=== PATIENT | male | born 1955 | race Caucasian/White ===

== ENCOUNTER → 2017-07-03 13:05 | Outpatient (CLI) | payer MEDICARE, SELFPAY ==
--- NOTE | 2017-07-03 13:08 | CT_ITS ---
STUDY: CT CHEST WITHOUT CONTRAST REASON FOR EXAM: Male, 62 years old. Follow up lung nodule RADIATION DOSAGE (If Supplied By Facility): CTDIvol = ( 12.4 ) mGy, DLP = ( 505.23 ) mGycm TECHNIQUE: Transaxial imaging of the chest was performed without intravenous contrast material. Sagittal and coronal reconstructions were performed. Individualized dose optimization techniques were used for this CT. COMPARISON: April 04, 2017 FINDINGS: There is stable biapical scarring. Bullous changes are again seen in both lungs, more pronounced in the upper lobes. There are stable coarse opacities along the periphery of the right lung. There is a stable 6 mm opacity in the subpleural location of the anterior segment of the right lower lobe on image 83 series 4. There is stable nodularity in the periphery of the lingula. There are minimal secretions in the airways. There is no demonstrated pleural abnormality. The heart is normal in size. There are calcifications of the coronary arteries. There are small lymph nodes scattered in the mediastinum. The hilar regions are unremarkable allowing for lack of contrast in the vessels. The pulmonary arteries are unremarkable. There are minimal vascular calcifications in the thoracic aorta. There are minimal degenerative changes in the visualized spine. There are old rib fractures on the right. Cholecystectomy clips are present. There are benign coarse calcifications in the liver. There is a small hiatal hernia. CT/Chest without Contrast IMPRESSION: The 6 mm subpleural nodule is stable in the anterior segment of the right lower lobe. This is likely secondary to scarring. There are stable emphysematous changes bilaterally. There is stable coarse scarring in the periphery of the right lung and lingula. There is no pleural effusion or significant lymphadenopathy. A follow-up CT of the chest can be obtained in one year. Electronically Signed: Sylwia Prakash MD at 9:31 EDT Tel Direct: [phone], Service support ,
== END ==
PROVIDERS: Family Provider Family Medicine; PCP Family Medicine; Visit Provider Internal Medicine Pulmonary Disease
DX: R91.1 Solitary pulmonary nodule (principal)
CPT/HCPCS: 71250

== ENCOUNTER → 2018-04-04 12:41 | Outpatient (CLI) | payer MEDICARE, SELFPAY ==
--- NOTE | 2018-04-04 12:45 | CT_ITS ---
STUDY: CT CHEST WITHOUT CONTRAST REASON FOR EXAM: Male, 62 years old. Lung nodule follow-up RADIATION DOSAGE (If Supplied By Facility): CTDIvol = ( 14.69 ) mGy, DLP = ( 616.66 ) mGycm TECHNIQUE: Transaxial imaging was performed without the administration of intravenous contrast material. Multiplanar coronal and sagittal images were reformatted. Individualized dose optimization techniques were used for this CT. COMPARISON: 07/03/2017, 04/04/2017 FINDINGS: Bullous emphysematous changes of the bilateral upper to mid lungs redemonstrated with linear fibrotic changes of the right middle and bilateral lower lobes. Similar appearance since the prior study. 6 mm subpleural noncalcified nodule in the anterior right lower lobe adjacent to the minor fissure and axial image 90 is stable. Reticulonodular fibrotic changes of the lingula are overall stable. No new pulmonary nodule. Secretions layer dependently in the lower trachea. There is no demonstrated pleural abnormality. Normal heart and pericardium. There is mild cardiac enlargement. Similar subcentimeter lymph nodes of the mediastinum without dominant larry mass. No obvious hilar adenopathy (limited without IV contrast). Normal unenhanced pulmonary arteries. Vascular calcifications of the thoracic aorta redemonstrated. There are multi-level degenerative changes of the thoracic spine. Old right rib fractures redemonstrated. Coarse calcifications of the liver are likely related to prior inflammation, doubtful clinical significance. Gallbladder surgically absent. Small hiatal hernia is noted. CT/Chest without Contrast IMPRESSION: 1. Since 07/03/2017 (and 04/04/2017), stable exam. Stable 6 mm subpleural nodule in the anterior right lower lobe. Probable postinflammatory/fibrotic in nature recommend follow-up chest CT in one year (to document stability for a total of 2 years) according to Fleischner Society recommendations. 2. Bullous emphysema with scattered fibrotic bands. 3. Additional chronic changes, as above, stable. Electronically Signed: Adair Barnes MD at 8:14 EST , Service support ,
== END ==
PROVIDERS: Family Provider Family Medicine; PCP Family Medicine; Referring Provider Internal Medicine Pulmonary Disease; Visit Provider Internal Medicine Pulmonary Disease
DX: R91.1 Solitary pulmonary nodule (principal)
CPT/HCPCS: 71250

== ENCOUNTER 2018-09-25 08:17 | Emergency (ER) | payer MEDICARE, SELFPAY ==
[2018-09-25 08:18] VITALS: BP 125/71; PULSE 58; RESP 16; TEMP 36.1; O2SAT 95; BMI 25.9
--- NOTE | 2018-09-25 08:35 | CT_ITS ---
STUDY: CT BRAIN WITHOUT CONTRAST REASON FOR EXAM: Male, 63 years old. Located RADIATION DOSAGE (If Supplied By Facility): CTDIvol = ( 44.99 ) mGy, DLP = ( 812.98 ) mGycm TECHNIQUE: Transaxial CT imaging of the brain was performed without administration of intravenous contrast material. Individualized dose optimization techniques were used for this CT. COMPARISON: No relevant priors. FINDINGS: Normal soft tissue structures. Normal calvarium. Normal size ventricles and extra-axial spaces for the patient's age. Normal white matter tracts of the cerebral hemispheres. Normal basal ganglia and thalami. Normal brainstem. Normal cerebellum. There is no intracranial hemorrhage. There are no findings of an acute ischemic infarction. Normal visualized paranasal sinuses. CT/Brain/Head without Contrast IMPRESSION: Normal unenhanced CT scan of the brain. Electronically Signed: Belkis Odonnell, at 9:21 EDT Tel , Service support ,
--- NOTE | 2018-09-25 08:35 | EKG12_ITS ---
Test Reason : NEURO Blood Pressure : / mmHG Vent. Rate : 053 BPM Atrial Rate : 053 BPM P-R Int : 142 ms QRS Dur : 100 ms QT Int : 442 ms P-R-T Axes : 072 059 059 degrees QTc Int : 414 ms Sinus bradycardia Otherwise normal ECG Confirmed by DILCIA SANCHEZ, BANDAR ([id number]), development editor GLORIA MOHAN ([id number]) on 09/27/2018 10:37:45 AM Referred By: LYDIA Confirmed By:LIZETTE HA MD
--- NOTE | 2018-09-25 08:36 | ED.VISSUMM ---
- ER Visit Summary Date of Service: 09/25/18 Chief Complaint: Dizziness, left arm tingling History of Present Illness: The patient is a 63 M who has been having dizziness as well as tingling of his left arm. He has had this for 2 days. He describes it both as lightheaded and room spinning sensations. He has had a slight intermittent headache that is controlled with Tylenol. He denies any chest pain or shortness of breath. The tingling is on the entire left arm. He denies any weakness. No facial droop or slurred speech. He does not have any history of this in the past. He does have COPD diabetes and hypertension but no history of stroke in the past. Physical Examination: Vital signs reviewed. HEENT exam unremarkable. His symptoms are exacerbated with eye movements up and down. Heart is regular rate and rhythm without murmurs. Lungs are clear to auscultation. Abdomen is soft and nontender. Extremities reveal no edema. Skin exam normal. Neurologic exam reveals a decreased sensation of the left arm. His NIH is 1 for this. Otherwise it is unremarkable. Test Results: EKG is normal sinus rhythm with a rate of 53. Laboratory studies show a hemoglobin of 11.7. Glucose 145. Troponin normal. CAT scan of the head is normal Emergency Department Course and Treatment: The patient was given meclizine. Upon reevaluation patient states he is feeling much better. Note this is likely vertigo causing his symptoms. He did have some slight paresthesias of the left arm but there is no weakness. Do not feel this represents stroke. Patient will be given meclizine to take at home. He will call his doctor for follow-up. Treatment Plan: [] Disposition: Discharge Impression: Vertigo This note was generated with [employer]thon[employer] software. It may contain incorrect words, spelling, and punctuation that were not noted in review of the chart prior to signing ED Disposition - Plan for ED Patient: Referrals: Daryl Dodson MD [Primary Care Provider] -
[2018-09-25 08:58] LABS: Absolute Lymphocyte Count 1.52 X10^3/ul (0.83-4.51); Absolute Neutrophil Count 4.7 X10^3/uL (2.0-7.7); Basophil# 0.02 X10^3/uL; Basophil% 0.3 % (0-1); Eosinophil# 0.21 X10^3/uL; Hemoglobin 11.7 g/dl (13.0-16.5); Lymphocyte # 1.52 X10^3/ul (4.0); Lymphocyte % 21.8 % (19-41); Mean Corp Hgb Conc 31.6 g/gl (32-36); Mean Corpuscular Hgb 26.1 pg (27.0-32.0); Mean Corpuscular Volume 82.6 fL (80-94); Mean Platelet Vol. 9.7 fl (6.2-12.0); Monocyte# 0.57 X10^3/uL; Monocyte% 8.2 % (0-10); Neutrophil # 4.65 X10^3/uL (2.7-7.7); Neutrophil % 66.6 % (47-70); Platelet Count 195 K/mm3 (150-450); RBC Distribution Width CV 14.6 % (11.6-14.6); RBC Distribution Width SD 42.9 fl (35.1-43.9); Red Blood Count 4.48 M/mm3 (4.6-6.2)
[2018-09-25 08:59] LABS: POSITIVE COUNT NO; POSITIVE DIFFERENTIAL NO; POSITIVE MORPHOLOGY NO
[2018-09-25 09:11] LABS: Anion Gap 6 (5-15); BUN 11 mg/dL (7-18); BUN/Creat Ratio 14.5 RATIO (10-20); Calcium,Total 8.9 mg/dL (8.5-10.1); Chloride 105 mmol/L (98-107); Creatinine, Serum 0.76 mg/dL (0.70-1.30); EST Glomerular Filtration Rate 110 mL/min (>60); Est Glom Filt Rate - Afr Amer 134 mL/min (>60); Estimated Creatinine Clearance 94.22 ml/min; Glucose 145 mg/dL (74-106); Potassium 3.6 mmol/L (3.5-5.1); Sodium Level 138 mmol/L (136-145)
[2018-09-25] MEDS: Meclizine HCl 25 MG Tablet PO (09:58)
--- NOTE | 2018-09-25 10:31 | ED.DEP ---
ED Disposition - Plan for ED Patient: Disposition: Home or Assisted Living Instructions: VERTIGO, Unspecified Prescriptions: Meclizine HCl [Antivert] 25 mg PO 4X/DAY PRN PRN #20 tab PRN Reason: Dizziness Prescription Printed Referrals: Daryl Dodson MD [Primary Care Provider] -
[2018-09-25 10:50] VITALS: BP 125/70; PULSE 71; RESP 18; O2SAT 97
== END 2018-09-25 10:51 | disposition home or self-care (01) ==
PROVIDERS: Emergency Provider Emergency Medicine; Family Provider Family Medicine; PCP Family Medicine
DX: R42 Dizziness and giddiness (principal); J44.9 Chronic obstructive pulmonary disease, unspecified; E11.9 Type 2 diabetes mellitus without complications; I10 Essential (primary) hypertension; R20.2 Paresthesia of skin
CPT/HCPCS: 70450; 80048; 84484; 85025; 93005; 99285; A4216

== ENCOUNTER 2019-03-13 22:36 | Emergency (ER) | payer MEDICARE, SELFPAY ==
[2019-03-13 22:38] VITALS: BP 121/70; PULSE 86; RESP 18; TEMP 38.1; O2SAT 91; BMI 24.7
--- NOTE | 2019-03-13 22:50 | RAD_ITS ---
STUDY: X-RAY CHEST REASON FOR EXAM: Male, 63 years old. cough, shortness of breath, Hx COPD TECHNIQUE: PA and lateral views of the chest. COMPARISON: July 03, 2016 FINDINGS: Reidentification of moderate cystic emphysematous changes and interstitial thickening with basilar predominance of both lungs. Several old right-sided rib fractures noted. No focal consolidation or pleural effusion. There is no demonstrated pleural abnormality. Normal size heart. Stable visualized osseous and mediastinal structures. RAD/Chest PA and Lateral IMPRESSION: COPD/emphysema Electronically Signed: Cabrera Hall MD at 23:17 EST , Service support ,
--- NOTE | 2019-03-14 00:25 | ED.DCSUM_ITS ---
History of Present Illness Chief Complaint: Shortness of Breath Narrative: Patient is a 63-year-old male who presents with about 2 months of a cough. He does have a history of COPD. He complains of ongoing productive cough with white sputum congestion and rhinorrhea. He has been on 2 rounds of steroids and antibiotics. He most recently completed antibiotics and steroids about 1 week ago. He has not short of breath. He denies any pain. He felt warm at home and had a temperature of 100.5 on arrival here. He has not seen his certified physical therapist assistant recently. He denies any pain. He notes that his chest is sore from coughing. Past Medical History - Allergies and Home Meds Allergies/Adverse Reactions: Allergies morphine Adverse Reaction (Verified 03/13/19 22:40) Nausea/Vom/Diarrhea Primary Care Physician: Daryl Dodson MD [Primary Care Provider] - Past Medical History: - - COPD, diabetes, hypertension Surgical History: - - Thoracotomy for pneumothorax repair Smoking Status: Former smoker - Family History Paternal Family History: Reports: No pertinent history Review of Systems All systems negative except as indicated General: Reports: Fever Eyes: Denies: Visual changes - bilaterally ENT: Reports: - - Congestion. Denies: Bilateral ear pain Cardiovascular: Reports: Chest pain Respiratory: Reports: Cough, Sputum. Denies: Dyspnea Gastrointestinal: Denies: Abdominal pain Musculoskeletal: Denies: Myalgias, Arthralgias Skin: Denies: Rash Neurological: Denies: Headache Hematologic: Denies: Easy bruising, Easy bleeding Allergy: Denies: Uticaria Physical Exam Vital Signs/Narrative: Vital Signs Temp Pulse Resp BP Pulse Ox 03/13/19 22:38 100.5 F H 86 18 121/70 H 91 Inital Vital Signs reviewed: Yes General: Well nourished, Well developed Head: Normocephalic Eyes: EOMI ENT: Moist mucous membranes Neck: Supple Cardiovascular: Regular rate, Regular rhythm Respiratory: - - Diminished air exchange, no wheezing, no respiratory distress, no increased work of breathing, able to speak in full sentences patient does not appear dyspneic Abdomen: Soft Extremities: Nontender Skin: Normal color Neurological: Alert Psychological: Normal affect Diagnostic/Tx/Re-eval Impressions Chest X-Ray 03/13/19 22:50 IMPRESSION: COPD/emphysema Electronically Signed: Cabrera Hall MD at 23:17 EST , Service support , 03/13/19 22:50 Chest PA and Lateral [RAD] Stat - Medical Decision Making Chest x-ray shows emphysematous changes. Patient symptoms have been going on for couple months. He has stable vitals here. During my history and exam his pulse ox ranges from 91 to 95%. He is not in any distress. I do not see a benefit to hospitalization or laboratory studies at this time. I did offer a couple of DuoNeb aerosols which he states he can actually just do at home. I did advise that he follow-up with his certified physical therapist assistant as he may need adjustments to his home medication regimen. He is agreeable to this plan. He understands to return for new or worsening symptoms and was discharged home. ED Disposition - Plan for ED Patient: Disposition: Home or Assisted Living Diagnosis: COPD (chronic obstructive pulmonary disease) Instructions: Copd Flare Referrals: Daryl Dodson MD [Primary Care Provider] - Kyle Barboza MD [STAFF PHYSICIAN] -
[2019-03-14 00:30] VITALS: O2SAT 92
[2019-03-14 00:41] VITALS: BP 122/60; PULSE 72; RESP 19; O2SAT 93
== END 2019-03-14 00:42 | disposition home or self-care (01) ==
PROVIDERS: Emergency Provider Emergency Medicine; Family Provider Family Medicine; PCP Family Medicine
DX: J44.9 Chronic obstructive pulmonary disease, unspecified (principal); I10 Essential (primary) hypertension; E11.9 Type 2 diabetes mellitus without complications; Z87.891 Personal history of nicotine dependence; Z79.51 Long term (current) use of inhaled steroids; Z79.84 Long term (current) use of oral hypoglycemic drugs; Z79.899 Other long term (current) drug therapy
CPT/HCPCS: 71046; 99282

== ENCOUNTER → 2020-05-26 10:45 | Outpatient (CLI) | payer MEDICARE, SELFPAY ==
[2020-05-26 12:14] LABS: Hemoglobin 9.5 g/dL (13.0-16.5); Mean Corp Hgb Conc 28.8 g/dL (32-36); Mean Corpuscular Volume 79.9 fL (80-94); Mean Platelet Vol. 10.6 fl (6.2-12.0); Platelet Count 170 K/mm3 (150-450); RBC Distribution Width CV 16.5 % (11.6-14.6); RBC Distribution Width SD 47.5 fl (35.1-43.9); Red Blood Count 4.13 M/mm3 (4.6-6.2); White Blood Count 6.8 K/mm3 (4.4-11.0)
[2020-05-26 12:19] LABS: International Normalized Ratio 1.1; Prothrombin Time (Protime)PT. 13.3 SECONDS (11.7-14.9)
[2020-05-26 12:20] LABS: Partial Thromboplast Time 24.5 Seconds (24.1-36.2)
[2020-05-26 12:45] LABS: ALB/GLOB Ratio 0.9 RATIO (0.9-2.4); AST(SGOT) 16 U/L (15-37); Alanine Aminotransfer ALT/SGPT 20 U/L (16-61); Albumin, Serum 3.5 g/dL (3.2-5.0); Alkaline Phosphatase 44 U/L (45-117); Anion Gap 11 (5-15); BUN 12 mg/dL (7-18); BUN/Creat Ratio 12.7 RATIO (10-20); Calcium,Total 9.2 mg/dL (8.5-10.1); Chloride 102 mmol/L (98-107); Creatinine, Serum 0.95 mg/dL (0.70-1.30); EST Glomerular Filtration Rate 85 mL/min (>60); Est Glom Filt Rate - Afr Amer 103 mL/min (>60); Ferritin 6 ng/mL (26-388); Globulin 3.8 g/dL (2.2-4.2); Glucose 175 mg/dL (74-106); Iron 26 ug/dL (65-175); Potassium 3.8 mmol/L (3.5-5.1); Protein, Total 7.3 g/dL (6.4-8.2); Sodium Level 137 mmol/L (136-145)
[2020-05-26 13:23] LABS: Hepatitis C Antibody Non-Reactive (Nonreactive)
[2020-05-27 08:20] LABS: AFP, Tumor Marker 2.8 ng/mL (0.0-8.3)
== END ==
PROVIDERS: PCP Family Medicine; Referring Provider Internal Medicine Gastroenterology; Visit Provider Internal Medicine Gastroenterology
DX: K74.60 Unspecified cirrhosis of liver (principal); K62.5 Hemorrhage of anus and rectum
CPT/HCPCS: 36415; 80053; 82105; 82728; 83540; 85027; 85610; 85730; 86803

== ENCOUNTER → 2020-06-23 08:43 | Outpatient (CLI) | payer MEDICARE, SELFPAY ==
--- NOTE | 2020-06-23 08:54 | US_ITS ---
STUDY: ABDOMINAL ULTRASOUND - RIGHT UPPER QUADRANT REASON FOR VISIT: Male, 65 years old FATTY LIVER TECHNIQUE: Ultrasound evaluation of the right upper quadrant was performed with real-time and static ravi-scale imaging. TECHNICAL QUALITY: Adequate. COMPARISON: None. FINDINGS: Liver: The liver measures 16.7 cm. There is increased echogenicity consistent with fatty infiltration. The bile ducts are within normal limits. There is hepatic color flow. The direction of portal flow is hepatopetal. There is no demonstrated mass lesion. There are 2 small calcified granulomas within the right lobe of the liver. Gallbladder: The patient is status post cholecystectomy. Common Bile Duct (C.B.D.): The common bile duct measures 6.5 mm. Pancreas: There is nonvisualization of the pancreas due to overlying bowel gas. Right Kidney: Normal size of the right kidney. The right kidney measures 10.3 cm x 5.8 cm x 4.4 cm. Normal renal cortex. The right cortex measures 1.3 cm. There is no demonstrated renal mass or cyst. There is no right hydronephrosis. IMPRESSION: Fatty infiltration of the liver. Electronically Signed: Tapan Lee MD at 13:20 EDT , Service support , STUDY: ABDOMINAL ULTRASOUND - ELASTOGRAPHY REASON FOR VISIT: Male, 65 years old. Fatty infiltration of the liver. TECHNIQUE: Liver stiffness measurements were obtained on a [employer] 85 ultrasound machine using a CA 1-7 probe following the SRU guidelines. 3 measurements were obtained using a 2-D-SWE method. The IQR/M was 17% suggesting a quality data set. TECHNICAL QUALITY: Adequate. COMPARISON: None. FINDINGS: Liver: Fatty infiltration of the liver. Median liver stiffness measured 23 kPa. US/Liver IMPRESSION: Liver stiffness measures 23 kPa compatible with F 4 Metavir score. This is suggestive of clinically significant portal hypertension. Electronically Signed: Tapan Lee MD at 13:24 EDT , Service support ,
--- NOTE | 2020-06-23 08:54 | US_ITS ---
STUDY: ABDOMINAL ULTRASOUND - RIGHT UPPER QUADRANT REASON FOR VISIT: Male, 65 years old FATTY LIVER TECHNIQUE: Ultrasound evaluation of the right upper quadrant was performed with real-time and static ravi-scale imaging. TECHNICAL QUALITY: Adequate. COMPARISON: None. FINDINGS: Liver: The liver measures 16.7 cm. There is increased echogenicity consistent with fatty infiltration. The bile ducts are within normal limits. There is hepatic color flow. The direction of portal flow is hepatopetal. There is no demonstrated mass lesion. There are 2 small calcified granulomas within the right lobe of the liver. Gallbladder: The patient is status post cholecystectomy. Common Bile Duct (C.B.D.): The common bile duct measures 6.5 mm. Pancreas: There is nonvisualization of the pancreas due to overlying bowel gas. Right Kidney: Normal size of the right kidney. The right kidney measures 10.3 cm x 5.8 cm x 4.4 cm. Normal renal cortex. The right cortex measures 1.3 cm. There is no demonstrated renal mass or cyst. There is no right hydronephrosis. IMPRESSION: Fatty infiltration of the liver. Electronically Signed: Tapan Lee MD at 13:20 EDT , Service support , STUDY: ABDOMINAL ULTRASOUND - ELASTOGRAPHY REASON FOR VISIT: Male, 65 years old. Fatty infiltration of the liver. TECHNIQUE: Liver stiffness measurements were obtained on a [employer] 85 ultrasound machine using a CA 1-7 probe following the SRU guidelines. 3 measurements were obtained using a 2-D-SWE method. The IQR/M was 17% suggesting a quality data set. TECHNICAL QUALITY: Adequate. COMPARISON: None. FINDINGS: Liver: Fatty infiltration of the liver. Median liver stiffness measured 23 kPa. US/Elastography Parenchyma/Organ IMPRESSION: Liver stiffness measures 23 kPa compatible with F 4 Metavir score. This is suggestive of clinically significant portal hypertension. Electronically Signed: Tapan Lee MD at 13:24 EDT , Service support ,
== END ==
PROVIDERS: PCP Family Medicine; Referring Provider Internal Medicine Gastroenterology; Visit Provider Internal Medicine Gastroenterology
DX: K76.0 Fatty (change of) liver, not elsewhere classified (principal)
CPT/HCPCS: 76705; 76981

== ENCOUNTER 2020-07-08 19:51 | Emergency (ER) | payer MEDICARE, SELFPAY ==
[2020-07-08 19:52] VITALS: BP 135/75; PULSE 68; RESP 18; TEMP 37.1; O2SAT 94; BMI 25.2
[2020-07-08 19:55] VITALS: BP 135/75; PULSE 68; RESP 18; TEMP 37.1; O2SAT 94
[2020-07-08 20:29] VITALS: PULSE 72; RESP 15; TEMP 37.2; O2SAT 98
--- NOTE | 2020-07-08 20:29 | EKG12_ITS ---
Test Reason : FEVER Blood Pressure : / mmHG Vent. Rate : 063 BPM Atrial Rate : 063 BPM P-R Int : 126 ms QRS Dur : 092 ms QT Int : 434 ms P-R-T Axes : 082 070 065 degrees QTc Int : 444 ms Normal sinus rhythm Normal ECG Confirmed by GLORIA SANCHEZ, CHANI ([id number]), image editor GLORIA MOHAN ([id number]) on 07/12/2020 2:16:38 PM Referred By: RENEE Confirmed By:CHANI CASTRO MD
[2020-07-08 20:38] VITALS: BP 135/75; PULSE 68; RESP 18; TEMP 37.1; O2SAT 98
[2020-07-08 20:46] VITALS: O2SAT 98
--- NOTE | 2020-07-08 20:52 | RAD_ITS ---
INDICATION: fever EXAMINATION/TECHNIQUE: X-RAY - XR Chest 1 View COMPARISON: 03/13/2019. FINDINGS: Chronic interstitial lung changes in the lung bases are again seen. Tortuous and calcified thoracic aorta. The heart is not enlarged. No pleural effusion or pneumothorax. No acute osseous abnormalities. Several old right-sided rib fractures. RAD/Chest 1 View (Portable) IMPRESSION: Chronic interstitial lung changes in the lung bases. Cannot rule out superimposed infection. Electronically Signed: Casey Dunlap MD at 21:04 EDT Tel , Service support ,
[2020-07-08 20:54] LABS: Absolute Lymphocyte Count 1.54 X10^3/uL (0.83-4.51); Absolute Neutrophil Count 6.3 X10^3/uL (2.0-7.7); Basophil# 0.07 X10^3/uL; Basophil% 0.8 % (0-1); Eosinophil# 0.22 X10^3/uL; Eosinophils% 2.5 % (0-5); Hemoglobin 11.7 g/dL (13.0-16.5); Lymphocyte # 1.54 X10^3/ul (4.0); Lymphocyte % 17.2 % (19-41); Mean Corp Hgb Conc 31.6 g/dL (32-36); Mean Corpuscular Hgb 27.3 pg (27.0-32.0); Mean Corpuscular Volume 86.4 fL (80-94); Mean Platelet Vol. 9.8 fl (6.2-12.0); Monocyte# 0.85 X10^3/uL; Monocyte% 9.5 % (0-10); NRBC Flagged by Analyzer 0 % (0-5); Neutrophil # 6.25 X10^3/uL (2.7-7.7); Neutrophil % 69.6 % (47-70); Platelet Count 152 K/mm3 (150-450); RBC Distribution Width CV 17.8 % (11.6-14.6); RBC Distribution Width SD 56.5 fl (35.1-43.9); Red Blood Count 4.28 M/mm3 (4.6-6.2)
[2020-07-08 20:59] LABS: Bacteria 0 SEEN /hpf (None Seen); Mucous, Urine 0 SEEN /hpf (<or=2+); Squamous Epithelial Cells - UA 0 SEEN /hpf (0-5)
[2020-07-08 21:06] LABS: International Normalized Ratio 1.2; Partial Thromboplast Time 24.3 Seconds (24.1-36.2); Prothrombin Time (Protime)PT. 14.5 SECONDS (11.7-14.9)
[2020-07-08 21:15] LABS: Color, Urine Yellow (Yellow); Glucose, Dipstick 50 mg/dl (Normal); Ketone-Dipstick 5 mg/dl (Negative); Leukocyte Esterase-Dipstick 25 /ul (Negative); Nitrite-Dipstick Negative (Negative); Occult Blood-Urine 10 /ul (Negative); Protein-Dipstick 30 mg/dl (Negative); Specific Gravity, Urine 1.025 (1.002-1.030); Urine Clarity Clear (Clear); Urine Urobilinogen 4 mg/dl (Normal)
[2020-07-08 21:18] LABS: Urine Bilirubin Dipstick 1 mg/dL (Negative)
[2020-07-08 21:21] LABS: Red Blood Cells-Urine 0-5 SEEN /hpf (0-5); White Blood Cells 0-5 SEEN /hpf (0-5)
[2020-07-08 21:28] LABS: AST(SGOT) 12 U/L (15-37); Alanine Aminotransfer ALT/SGPT 17 U/L (16-61); Albumin, Serum 3.6 g/dL (3.2-5.0); Alkaline Phosphatase 30 U/L (45-117); Anion Gap 6 (5-15); BUN 13 mg/dL (7-18); BUN/Creat Ratio 14.3 RATIO (10-20); Calcium,Total 9.1 mg/dL (8.5-10.1); Chloride 100 mmol/L (98-107); Creatinine, Serum 0.91 mg/dL (0.70-1.30); EST Glomerular Filtration Rate 90 mL/min (>60); Est Glom Filt Rate - Afr Amer 108 mL/min (>60); Estimated Creatinine Clearance 76.67 ml/min; Globulin 3.5 g/dL (2.2-4.2); Glucose 125 mg/dL (74-106); Potassium 3.6 mmol/L (3.5-5.1); Protein, Total 7.1 g/dL (6.4-8.2); Sodium Level 134 mmol/L (136-145)
[2020-07-08 21:38] VITALS: BP 113/59; PULSE 59; RESP 19; TEMP 36.7; O2SAT 96
[2020-07-08 21:47] LABS: Lactic Acid 2.4 mmol/L (0.4-1.9)
--- NOTE | 2020-07-08 22:02 | ED.VIS.GEN ---
History of Present Illness Chief Complaint: Fever Narrative: noticed that the patient was a little warm tonight, they took the temperature and it is high. Patient took Tylenol and came to the emergency department. His temperature was normal in the emergency department. He has no cough or congestion he has no neck pain or stiffness he has no shortness of breath. He denies any rash. He has no abdominal pain. He has no testicle pain he has no urinary symptoms. No headache. He denies any myalgias. Past medical history: Hypertension, hypercholesterolemia, COPD Medications: Reviewed Social history: Noncontributory Review of systems: All systems negative except as indicated General: Fever as in HPI Eyes: Denies: Visual changes - bilaterally ENT: Denies: Rhinorrhea, Sore throat Cardiovascular: Denies: Chest pain Respiratory: Denies: Dyspnea, Cough Gastrointestinal: Denies: Abdominal pain, Nausea, Vomiting Genitourinary: Denies: Dysuria Musculoskeletal: Denies: Myalgias Skin: Denies: Rash Neurological: Denies: Headache, no focal weakness Psych: Reports: negative Hematologic: Denies: Easy bruising, Easy bleeding Physical exam General: Well nourished, Well developed, No Acute Distress Head: Normocephalic, Atraumatic Eyes: Conjunctiva not pale ENT: Has some rhinorrhea but normal nasal turbinates normal posterior oropharynx. Neck: Supple, Nontender, No lymphadenopathy Cardiovascular: Regular rate, Regular rhythm Respiratory: No distress, CTA bilaterally Abdomen: Soft, Nontender, Nondistended Back: Nontender, Normal Inspection. Negative for: CVA tenderness Extremities: Nontender, No edema Skin: Normal color, No rash Neurological: Alert, Normal Strength, Normal Sensation Psychological: Normal affect Past Medical History - Allergies and Home Meds Allergies/Adverse Reactions: Allergies morphine Adverse Reaction (Verified 07/08/20 19:55) Nausea/Vom/Diarrhea Primary Care Physician: Daryl Dodson MD [Primary Care Provider] - Surgical History: - - Thoracotomy for pneumothorax repair Smoking Status: Former smoker - Family History Paternal Family History: Reports: No pertinent history Physical Exam Vital Signs/Narrative: Vital Signs Temp Pulse Resp BP Pulse Ox 07/08/20 21:38 98.1 F 59 L 19 H 113/59 L 96 07/08/20 20:46 98 07/08/20 20:38 98.8 F 68 18 135/75 H 98 07/08/20 20:29 99 F 72 15 98 07/08/20 19:55 98.8 F 68 18 135/75 H 94 07/08/20 19:52 98.8 F 68 18 135/75 H 94 Diagnostic/Tx/Re-eval Chest X-Ray - ED: 1 View, Read by ED Physician, Read by Radiologist, Normal, Heart, Lungs - Medical Decision Making Patient has a normal emergency department work-up. He appears well. I will discharge in stable condition I did draw blood cultures which are pending he is not found to have a fever in the emergency department, but he did take Tylenol. I did have a long discussion with him and his , this may be the beginning of an infectious etiology that at this time we cannot diagnose, if anything worsens or his fever returns or he has any symptoms he needs to return to the emergency department for reevaluation. He seems quite trustworthy as does his . ED Disposition - Plan for ED Patient: Disposition: Home or Assisted Living Diagnosis: Fever Instructions: ED FUO Adult Referrals: Daryl Dodson MD [Primary Care Provider] - 2 Days
[2020-07-09 00:50] LABS: Reflex Lactate? Y
== END 2020-07-08 22:12 | disposition home or self-care (01) ==
PROVIDERS: Emergency Provider Emergency Medicine; PCP Family Medicine
DX: R50.9 Fever, unspecified (principal); Z87.891 Personal history of nicotine dependence; I10 Essential (primary) hypertension; E78.00 Pure hypercholesterolemia, unspecified; J44.9 Chronic obstructive pulmonary disease, unspecified; I70.0 Atherosclerosis of aorta; Z79.82 Long term (current) use of aspirin
CPT/HCPCS: 71045; 80053; 81001; 83605; 85025; 85610; 85730; 87040; 87086; 87088; 87426; 93005; 99284; A4216

== ENCOUNTER 2020-09-30 17:33 | Emergency (ER) | payer MEDICARE, SELFPAY ==
[2020-09-30 17:33] VITALS: BP 161/99; PULSE 76; RESP 15; TEMP 36.8; O2SAT 99; BMI 23.8
--- NOTE | 2020-09-30 18:15 | EDS_ITS ---
HPI History of Present Illness Chief Complaint: Confusion Informant: patient Onset/Context/Timing Onset: Today Context: Gradual Onset Timing: Continuous Quality: Confused Location: Generalized Worsened by: Nothing Relieved by: Nothing Narrative Narrative: Patient presents with confusion that became worse today. states it is gradually gotten worse today. states it has been constant. Patient states he got into his car to go get some ice cream for his and him today. Patient was brought in by police and EMS because he was driving erratically. Patient does not remember any of these events. EMS reports that the patient had a temperature of 107. Upon arrival here the patient is afebrile. states that the patient has been having intermittent fevers and chills over the past several days. states that he is bundled up with a blanket and shivering while the house was at 82 degrees. also states that the patient has been complaining of some abdominal pain. Patient was hospitalized a few months ago for anemia and was given 4 units of blood at that time. Patient states he was told to watch for black stools. Patient is on iron. Patient states he has not noticed a change in his stools. Patient states the last time he was at his primary care physician's office his blood counts were normal. [facility] Medical History Diabetes mellitus Hypertension Home Medications aspirin [Aspir-Low] 81 mg PO DAILY 07/03/16 [History Last Taken 09/25/18 81 mg] budesonide-formoterol [Symbicort] 2 puff INHALATION BID PRN 07/03/16 [History Last Taken 1 Day Ago ~07/02/16] glimepiride 4 mg PO DAILY 07/03/16 [History Last Taken 09/25/18] hydrochlorothiazide 25 mg PO DAILY 07/03/16 [History Last Taken 09/25/18] ipratropium-albuterol 3 ml INHALATION Q4H.RT PRN 07/03/16 [History Last Taken 1 Day Ago ~07/02/16] metformin 1,000 mg PO BIDCM 07/03/16 [History Last Taken 09/24/18] meclizine 25 mg PO 4X/DAY PRN PRN #20 tab 09/25/18 [Rx Last Taken Unknown] nadolol 40 mg PO DAILY 07/08/20 [History Last Taken Unknown] pantoprazole 40 mg PO BID 07/08/20 [History Last Taken Unknown] Allergy/AdvReac Type Severity Reaction Status Date / Time morphine AdvReac Nausea/Vom/ Verified 09/30/20 17:37 Diarrhea Social History Smoking Status: Former smoker ROS ROS ED Constitutional Constitutional ED: Reports chills, fever(s) and subjective Eyes Eyes: Reports change in vision left; Denies blurry vision ENT ENT ED: Denies rhinorrhea or sore throat Cardiovascular Cardiovascular: Denies chest pain or palpitations Respiratory/Chest Respiratory/Chest: Denies cough or dyspnea Gastrointestinal Gastrointestinal: Reports abdominal pain; Denies melena, nausea or vomiting Genitourinary Genitourinary ED: Denies dysuria or hematuria Musculoskeletal Musculoskeletal: Denies back pain or neck pain Integumentary Denies abscess or rash Neurologic Neurologic: Reports headache(s) and weakness Allergic/Immunologic Allergic/Immunologic ED: Denies mouth swelling or urticaria EXAM Physical Exam Const Vital Signs: 09/30/20 17:33 Temperature 98.3 F Temperature Source Temporal Pulse Rate 76 Respiratory Rate 15 Blood Pressure 161/99 H Blood Pressure Mean 119 Pulse Ox 99 Oxygen Delivery Method Room Air Positive well nourished and well developed General Appearance ED: well developed HEENT Reports moist mucous membranes Neck supple and no JVD Resp normal respiratory effort and clear to auscultation bilaterally Cardio regular rate, regular rhythm and no murmurs GI normal to inspection, nondistended, normoactive bowel sounds and non-tender Palpation: soft Extremity normal to inspection General Extremety ED: Negative for edema or tenderness General Extremity: Negative for edema Neuro oriented x3, CN's II-XII intact bilaterally and no sensory deficits noted Sensorium / Orientation: alert Motor Exam: strength 5/5 throughout Psych mental status grossly normal Skin no rashes or lesions noted MDM MDM MDM Narrative Medical decision making narrative: CT scan of the brain was obtained. There is no acute intracranial abnormality. CT scan of the abdomen and pelvis was ordered. However, the patient refused this. Patient states he had one done recently at an outlying facility. I was unable to retrieve the results. Patient states that they were normal. CBC and comprehensive metabolic profile were obtained were within normal limits. Lactate was 2.0. Urinalysis does not show any evidence of urinary tract infection. Portable 1 view chest x-ray was obtained. On my interpretation, lung long show chronic changes. There is normal cardiac silhouette. Bony thorax is normal. There is no acute process noted. Radiologist also interpreted the x-ray and agrees. Patient is feeling better on reevaluation. Patient was advised of his findings. Patient was instructed to follow-up with his primary care physician in 5 to 7 days for further evaluation. Patient and family understood and were agreeable with the plan. All questions were answered. Lab Data Attestation: I reviewed the patient's lab results. Labs: Laboratory Results - last 24 hr 09/30/20 09/30/20 09/30/20 17:56 17:56 18:00 WBC 6.8 RBC 3.67 L Hgb 11.5 L Hct 35.0 L MCV 95.4 H MCH 31.3 MCHC 32.9 RDW Std Deviation 49.2 H RDW Coeff of Sondra 14.1 Plt Count 160 MPV 9.5 Immature Gran % (Auto) 0.400 Neut % (Auto) 69.9 Lymph % (Auto) 14.7 L [place] % (Auto) 11.9 H Eos % (Auto) 2.2 Baso % (Auto) 0.9 Absolute Neuts (auto) 4.8 Absolute Lymphs (auto) 1.00 Nucleated RBC % 0 PT INR APTT Sodium 136 Potassium 4.3 Chloride 102 Carbon Dioxide 27.0 Anion Gap 7 BUN 9 Creatinine 0.83 Estim Creat Clear Calc 84.06 Est GFR (MDRD) Af Amer 120 Est GFR (MDRD) Non-Af 99 BUN/Creatinine Ratio 10.8 Glucose 162 H Lactic Acid Calcium 8.5 Total Bilirubin 0.80 AST 21 ALT 16 Alkaline Phosphatase 33 L Total Protein 6.6 Albumin 3.4 Globulin 3.2 Albumin/Globulin Ratio 1.1 Urine Color Yellow Urine Clarity Sl. Cloudy Urine pH 5.0 Ur Specific [place] 1.020 Urine Protein 15 H Urine Glucose (UA) 100 H Urine Ketones Negative Urine Occult Blood Negative Urine Nitrite Negative Urine Bilirubin Negative Urine Urobilinogen Normal Ur Leukocyte Esterase Negative Urine RBC 0 SEEN Urine WBC 0-5 SEEN Ur Squamous Epith Cells 0-5 SEEN Urine Bacteria 0 SEEN Urine Mucus 0 SEEN 09/30/20 09/30/20 18:45 18:45 WBC RBC Hgb Hct MCV MCH MCHC RDW Std Deviation RDW Coeff of Sondra Plt Count MPV Immature Gran % (Auto) Neut % (Auto) Lymph % (Auto) [place] % (Auto) Eos % (Auto) Baso % (Auto) Absolute Neuts (auto) Absolute Lymphs (auto) Nucleated RBC % PT 13.9 INR 1.1 APTT 25.8 Sodium Potassium Chloride Carbon Dioxide Anion Gap BUN Creatinine Estim Creat Clear Calc Est GFR (MDRD) Af Amer Est GFR (MDRD) Non-Af BUN/Creatinine Ratio Glucose Lactic Acid 2.0 Calcium Total Bilirubin AST ALT Alkaline Phosphatase Total Protein Albumin Globulin Albumin/Globulin Ratio Urine Color Urine Clarity Urine pH Ur Specific [place] Urine Protein Urine Glucose (UA) Urine Ketones Urine Occult Blood Urine Nitrite Urine Bilirubin Urine Urobilinogen Ur Leukocyte Esterase Urine RBC Urine WBC Ur Squamous Epith Cells Urine Bacteria Urine Mucus Radiography Diagnostic Testing: Radiology Impression Chest X-Ray 09/30/20 18:20 IMPRESSION: Severe emphysematous changes stable from prior exam without new consolidation, focal atelectasis or pleural effusion. Stable cardiac size. Electronically Signed: Marixa Greco MD at 19:24 EDT , Service support , Brain CT 09/30/20 19:01 IMPRESSION: No acute intracranial findings or changes. Negative for hemorrhage, hematoma or extra-axial fluid collection. Negative for demarcation of the new nonhemorrhagic in part zone or mass density. Stable involutional changes. Electronically Signed: Marixa Greco MD at 20:03 EDT , Service support , Discharge Plan Triage Chief Complaint: Confusion ED Provider: Grady Gerardo Dx/Rx/DC Orders Clinical Impression: Episode of confusion Instructions: ED Confusion Prescriptions: No Action metformin 1,000 MG tablet 1,000 mg PO BIDCM RF: 0 hydrochlorothiazide 12.5 MG tablet 25 mg PO DAILY RF: 0 glimepiride 4 MG tablet 4 mg PO DAILY RF: 0 ipratropium-albuterol 3 ML solution for nebulization 3 ml inhalation Q4H.RT PRN (Reason: Bronchodialation) RF: 0 budesonide-formoterol [Symbicort] 1 INHALER inhaler 2 puff inhalation BID PRN (Reason: Bronchodialation) RF: 0 aspirin [Aspir-Low] 81 MG Tablet.Dr 81 mg PO DAILY RF: 0 meclizine 25 MG tablet 25 mg PO 4X/DAY PRN PRN (Reason: Dizziness) Qty: 20 RF: 0 pantoprazole 40 MG tablet 40 mg PO BID RF: 0 nadolol 40 MG tablet 40 mg PO DAILY RF: 0 Primary Care Provider: Daryl Dodson Referrals: Daryl Dodson MD [Primary Care Provider] - 5-7 Days Disposition Disposition: Home, Self Care
--- NOTE | 2020-09-30 18:20 | RAD_ITS ---
STUDY: X-RAY CHEST REASON FOR EXAM: Male, 65 years old. Confusion TECHNIQUE: 1 view COMPARISON: Prior chest radiograph of July FINDINGS: Generalized hyperexpansion with marked emphysematous changes of the upper lung zones. Redirection of vascularity to the lower lung zones. Negative for new consolidation, atelectasis or pleural effusion. Stable normal cardiac size. Normal mediastinum and miladis. Normal visualized pulmonary arteries. There is atherosclerotic calcification of the aortic arch . Normal visualized thoracic spine. Prior healed right rib fracture. There is no demonstrated abnormality of the visualized soft tissue structures of the upper abdomen. RAD/Chest 1 View (Portable) IMPRESSION: Severe emphysematous changes stable from prior exam without new consolidation, focal atelectasis or pleural effusion. Stable cardiac size. Electronically Signed: Marixa Greco MD at 19:24 EDT , Service support ,
[2020-09-30 18:31] LABS: Bacteria 0 SEEN /hpf (None Seen); Mucous, Urine 0 SEEN /hpf (<or=2+); Red Blood Cells-Urine 0 SEEN /hpf (0-5)
[2020-09-30] MEDS: 0.9% Normal Saline 1,000 ML 1000 ML IV (18:31)
[2020-09-30 18:34] LABS: Absolute Neutrophil Count 4.8 X10^3/uL (2.0-7.7); Basophil# 0.06 X10^3/uL; Basophil% 0.9 % (0-1); Eosinophil# 0.15 X10^3/uL; Eosinophils% 2.2 % (0-5); Hemoglobin 11.5 g/dL (13.0-16.5); Lymphocyte % 14.7 % (19-41); Mean Corp Hgb Conc 32.9 g/dL (32-36); Mean Corpuscular Hgb 31.3 pg (27.0-32.0); Mean Corpuscular Volume 95.4 fL (80-94); Mean Platelet Vol. 9.5 fl (6.2-12.0); Monocyte# 0.81 X10^3/uL; Monocyte% 11.9 % (0-10); NRBC Flagged by Analyzer 0 % (0-5); Neutrophil # 4.75 X10^3/uL (2.7-7.7); Neutrophil % 69.9 % (47-70); Platelet Count 160 K/mm3 (150-450); RBC Distribution Width CV 14.1 % (11.6-14.6); RBC Distribution Width SD 49.2 fl (35.1-43.9); Red Blood Count 3.67 M/mm3 (4.6-6.2); White Blood Count 6.8 K/mm3 (4.4-11.0)
[2020-09-30 18:46] LABS: ALB/GLOB Ratio 1.1 RATIO (0.9-2.4); AST(SGOT) 21 U/L (15-37); Alanine Aminotransfer ALT/SGPT 16 U/L (16-61); Albumin, Serum 3.4 g/dL (3.2-5.0); Alkaline Phosphatase 33 U/L (45-117); Anion Gap 7 (5-15); BUN 9 mg/dL (7-18); BUN/Creat Ratio 10.8 RATIO (10-20); Calcium,Total 8.5 mg/dL (8.5-10.1); Chloride 102 mmol/L (98-107); Creatinine, Serum 0.83 mg/dL (0.70-1.30); EST Glomerular Filtration Rate 99 mL/min (>60); Est Glom Filt Rate - Afr Amer 120 mL/min (>60); Estimated Creatinine Clearance 84.06 ml/min; Globulin 3.2 g/dL (2.2-4.2); Glucose 162 mg/dL (74-106); Potassium 4.3 mmol/L (3.5-5.1); Protein, Total 6.6 g/dL (6.4-8.2); Sodium Level 136 mmol/L (136-145)
[2020-09-30 18:50] LABS: Color, Urine Yellow (Yellow); Glucose, Dipstick 100 mg/dl (Normal); Ketone-Dipstick Negative (Negative); Leukocyte Esterase-Dipstick Negative /ul (Negative); Nitrite-Dipstick Negative (Negative); Occult Blood-Urine Negative /ul (Negative); Protein-Dipstick 15 mg/dl (Negative); Urine Bilirubin Dipstick Negative (Negative); Urine Clarity Sl. Cloudy (Clear); Urine Urobilinogen Normal (Normal)
--- NOTE | 2020-09-30 19:01 | CT_ITS ---
STUDY: CT BRAIN WITHOUT CONTRAST REASON FOR EXAM: Male, 65 years old. Confusion RADIATION DOSAGE (If Supplied By Facility): CTDIvol = ( 44.99 ) mGy, DLP = ( 812.98 ) mGycm TECHNIQUE: Transaxial CT imaging of the brain was performed without administration of intravenous contrast material. Individualized dose optimization techniques were used for this CT. COMPARISON: Prior head CT exam of 09/25/2018 FINDINGS: Normal soft tissue structures. Normal calvarium. There is mild cerebral atrophy with widening of the extra-axial spaces and ventricular dilatation. There are minimal areas of decreased attenuation within the white matter tracts of the supratentorial brain, consistent with microvascular disease changes. Normal basal ganglia and thalami. Normal brainstem. Normal cerebellum. Carotid artery calcifications. There is no intracranial hemorrhage. There are no findings of an acute ischemic infarction. Normal visualized paranasal sinuses. CT/Brain/Head without Contrast IMPRESSION: No acute intracranial findings or changes. Negative for hemorrhage, hematoma or extra-axial fluid collection. Negative for demarcation of the new nonhemorrhagic in part zone or mass density. Stable involutional changes. Electronically Signed: Marixa Greco MD at 20:03 EDT , Service support ,
[2020-09-30 19:16] LABS: Squamous Epithelial Cells - UA 0-5 SEEN /hpf (0-5); White Blood Cells 0-5 SEEN /hpf (0-5)
--- NOTE | 2020-09-30 19:21 | ED.RN ---
LACTIC Acid 2.0. Dr loyola
[2020-09-30 19:31] LABS: International Normalized Ratio 1.1; Partial Thromboplast Time 25.8 Seconds (24.1-36.2); Prothrombin Time (Protime)PT. 13.9 SECONDS (11.7-14.9)
[2020-09-30 21:36] VITALS: BP 137/90; PULSE 81; RESP 18; O2SAT 99
[2020-09-30 22:51] LABS: Reflex Lactate? Y
== END 2020-09-30 21:37 | disposition home or self-care (01) ==
PROVIDERS: Emergency Provider Emergency Medicine; PCP Family Medicine
DX: R41.0 Disorientation, unspecified (principal); E11.9 Type 2 diabetes mellitus without complications; I10 Essential (primary) hypertension; Z87.891 Personal history of nicotine dependence; Z65.3 Problems related to other legal circumstances; Z79.51 Long term (current) use of inhaled steroids; Z79.82 Long term (current) use of aspirin; Z79.84 Long term (current) use of oral hypoglycemic drugs
CPT/HCPCS: 70450; 71045; 80053; 81001; 83605; 85025; 85610; 85730; 99285; A4216